=== PATIENT | female | born 1965 | race American Indian/Alaskan Native ===

== ENCOUNTER 2021-09-03 20:37 | Emergency (ER) | payer OTHER ==
[2021-09-03] MEDS ORDERED: IBUPROFEN 600 MG TAB PO ONE (21:10)
[2021-09-03] MEDS ORDERED: methylPREDNISolone Sod Succinate 125 MG/2 ML INJ IM ONE (21:10)
[2021-09-03] MEDS ORDERED: IPRATROPIUM/ALBUTEROL SULFATE 3 ML AMPUL.NEB IH ONE (21:10)
--- NOTE | 2021-09-03 21:27 | XRay Report ---
XR chest routine 2V INDICATION / CLINICAL INFORMATION: cough. COMPARISON: None available. FINDINGS: SUPPORT DEVICES: None. HEART /PULMONARY VASCULATURE: No significant abnormality. LUNGS / PLEURA: No significant pulmonary or pleural abnormality. No pneumothorax. ADDITIONAL FINDINGS: No significant additional findings. IMPRESSION: 1. No acute findings. Signer Name: Donte Johnson MD Signed: 09/03/2021 9:22 PM Workstation Name: [id number]
--- NOTE | 2021-09-03 21:49 | Emergency Department Report ---
- General Chief Complaint: Upper Respiratory Infection Stated Complaint: CHEST PAIN & SORE THROAT Source: patient Mode of arrival: Ambulatory Limitations: No Limitations - History of Present Illness Initial Comments: Patient is a 56-year-old -[place] female with a history of HIV, hypertension and type 2 diabetes who presents to the ED with complaint of acute onset persistent nasal and sinus congestion, frontal sinus pressure and headache, mild sore throat, persistent dry cough with intermittent wheezing for the last 1 week. Patient states that she has been taking ybru-pko-hjddjna medications with no relief. Patient also complains of diffuse body aches and pains and subjective fever and chills and lack of appetite. Patient states that her children have had similar symptoms as well. Patient denies dizziness, syncope, chest pain or shortness of breath, nausea and vomiting or diarrhea, dysuria, urinary frequency and urgency, Mahad pain, neck pain or back pain. MD Complaint: fever, cough, rhinorrhea, nasal congestion, sinus pain -: Sudden, week(s) (1) Severity: severe Severity scale (0 -10): 7 Quality: sharp, aching Consistency: constant Improves With: nothing Worsens With: nothing Context: sick contacts Associated Symptoms: denies other symptoms, fever, chills, myalgias, headache, rhinorrhea, nasal congestion, sore throat, cough. denies: diaphoresis, stiff neck, chest pain, shortness of breath, abdominal pain, nausea, vomiting, diarrhea, dysuria, rash, confusion, right sweats, epistaxis, hoarseness, ear pain Treatments Prior to Arrival: "cold medicine" - Related Data Previous Rx's Medication Instructions Recorded Last Taken Type Albuterol Sulfate [Proair 1 - 2 puff IH Q6H PRN #1 inh 09/03/21 Unknown Rx Respiclick] Benzonatate [Tessalon Perles] 100 mg PO Q8HR #30 cap 09/03/21 Unknown Rx Cetirizine HCl [Zyrtec 10mg tab] 10 mg PO DAILY #30 tab 09/03/21 Unknown Rx Doxycycline Hyclate 100 mg PO Q12H #20 cap 09/03/21 Unknown Rx methylPREDNISolone [Medrol 4MG 4 mg PO DAILY #21 tab 09/03/21 Unknown Rx DOSEPAK (21 tabs)] Allergies Allergy/AdvReac Type Severity Reaction Status Date / Time lisinopril Allergy Swelling Verified 09/03/21 21:01 ED Review of Systems ROS: Stated complaint: CHEST PAIN & SORE THROAT Other details as noted in HPI Constitutional: malaise, weakness. denies: chills, fever Eyes: denies: eye pain, eye discharge, vision change ENT: throat pain, congestion. denies: ear pain Respiratory: cough, wheezing. denies: shortness of breath Cardiovascular: denies: chest pain, palpitations Endocrine: no symptoms reported Gastrointestinal: denies: abdominal pain, nausea, vomiting, diarrhea Genitourinary: denies: urgency, dysuria, discharge Musculoskeletal: arthralgia, myalgia. denies: back pain, joint swelling Skin: denies: rash, lesions Neurological: headache. denies: weakness, paresthesias Psychiatric: denies: anxiety, depression Hematological/Lymphatic: denies: easy bleeding, easy bruising ED Past Medical Hx - Past Medical History Previous Medical History?: Yes Hx Hypertension: Yes Hx Diabetes: Yes Hx HIV: Yes - Social History Smoking Status: Current Some Day Smoker - Medications Home Medications: Home Medications Medication Instructions Recorded Confirmed Last Taken Type Albuterol Sulfate [Proair 1 - 2 puff IH Q6H PRN #1 inh 09/03/21 Unknown Rx Respiclick] Benzonatate [Tessalon Perles] 100 mg PO Q8HR #30 cap 09/03/21 Unknown Rx Cetirizine HCl [Zyrtec 10mg tab] 10 mg PO DAILY #30 tab 09/03/21 Unknown Rx Doxycycline Hyclate 100 mg PO Q12H #20 cap 09/03/21 Unknown Rx methylPREDNISolone [Medrol 4MG 4 mg PO DAILY #21 tab 09/03/21 Unknown Rx DOSEPAK (21 tabs)] ED Physical Exam - General Limitations: No Limitations General appearance: alert, in no apparent distress - Head Head exam: Present: atraumatic, normocephalic, normal inspection - Eye Eye exam: Present: normal appearance, PERRL, EOMI Pupils: Present: normal accommodation - ENT ENT exam: Present: mucous membranes moist, TM's normal bilaterally, normal external ear exam, other (Grossly congested nasal passages; palpable frontal and maxillary sinus tenderness; mild erythematous oropharynx) - Neck Neck exam: Present: normal inspection, full ROM, lymphadenopathy (Palpable anterior cervical lymphadenopathy) - Respiratory Respiratory exam: Present: wheezes (Mildly diffuse coarse wheezes throughout). Absent: normal lung sounds bilaterally, respiratory distress, rales, rhonchi, chest wall tenderness, accessory muscle use, decreased breath sounds, prolonged expiratory - Cardiovascular Cardiovascular Exam: Present: regular rate, normal rhythm, normal heart sounds. Absent: systolic murmur, diastolic murmur, rubs, gallop - GI/Abdominal GI/Abdominal exam: Present: soft, normal bowel sounds. Absent: tenderness, guarding, rebound, hyperactive bowel sounds, hypoactive bowel sounds, organomegaly - Extremities Exam Extremities exam: Present: normal inspection, full ROM, normal capillary refill. Absent: tenderness - Back Exam Back exam: Present: normal inspection, full ROM. Absent: tenderness, CVA tenderness (R), CVA tenderness (L), muscle spasm, paraspinal tenderness, vertebral tenderness - Neurological Exam Neurological exam: Present: alert, oriented X3, CN II-XII intact, normal gait, reflexes normal - Psychiatric Psychiatric exam: Present: normal affect, normal mood - Skin Skin exam: Present: warm, dry, intact, normal color. Absent: rash ED Course Vital Signs 09/03/21 09/03/21 20:55 20:59 Temperature 100 F H Pulse Rate 107 H Respiratory 18 Rate Blood Pressure 170/96 O2 Sat by Pulse 89 Oximetry ED Medical Decision Making - Radiology Data Radiology results: report reviewed, image reviewed [address] [address] XRay Report Signed Patient: VIVIANA GLOVER MR#: [id number] : 1965 Acct:[id number] Age/Sex: 56 / F ADM Date: 09/03/21 Loc: ED Attending Dr: Ordering Physician: ZACHARIAH EATON Date of Service: 09/03/21 Procedure(s): XR chest routine 2V Accession Number(s): [id number] cc: ZACHARIAH EATON Fluoro Time In Minutes: XR chest routine 2V INDICATION / CLINICAL INFORMATION: cough. COMPARISON: None available. FINDINGS: SUPPORT DEVICES: None. HEART /PULMONARY VASCULATURE: No significant abnormality. LUNGS / PLEURA: No significant pulmonary or pleural abnormality. No pneumothorax. ADDITIONAL FINDINGS: No significant additional findings. IMPRESSION: 1. No acute findings. Signer Name: Shira Parnell MD Signed: 09/03/2021 9:22 PM Workstation Name: [id number] Transcribed By: JS Dictated By: SHIRA PARNELL MD Electronically Authenticated By: SHIRA PARNELL MD Signed Date/Time: 09/03/212121 DD/ 21 TD/TT: - Medical Decision Making This is a 56-year-old -[place] female with a history of HIV, hypertension and type 2 diabetes who presents to the ED with complaint of acute onset persistent nasal and sinus congestion, frontal sinus pressure and headache, mild sore throat, persistent dry cough with intermittent wheezing for the last 1 week. Patient states that she has been taking avaw-slq-tufylys medications with no relief. Patient also complains of diffuse body aches and pains and subjective fever and chills and lack of appetite. Patient states that her children have had similar symptoms as well. In the ED, patient is alert and oriented x3 and is not in any distress. Patient was treated in the ED with DuoNeb and also given Solu-Medrol 125 mg intramuscular injection. On reevaluation, patient's pain is well controlled medication and wheezing resolved with medication. Chest x-ray showed no acute cardiopulmonary abnormalities or pneumonitis. Patient was therefore discharged home on medications and advised to follow-up with her primary care physician in 7 to 10 days for reevaluation or return to the ED immediately if her symptoms get worse. - Differential Diagnosis URI; sinusitis; pharyngitis; bronchitis; pneumonia; rhinitis Critical care attestation.: If time is entered above; I have spent that time in minutes in the direct care of this critically ill patient, excluding procedure time. ED Disposition Clinical Impression: Acute upper respiratory infection, Fever and chills Acute bronchitis Qualifiers: Bronchitis organism: other organism Qualified Code(s): J20.8 - Acute bronchitis due to other specified organisms Acute frontal sinusitis, unspecified Qualifiers: Recurrence: non-recurrent Qualified Code(s): J01.10 - Acute frontal sinusitis, unspecified Disposition: 01 HOME / SELF CARE / HOMELESS Is pt being admited?: No Does the pt Need Aspirin: No Condition: Stable Instructions: Acute Bronchitis (ED), Sinusitis, Adult, Kbzp-[id number], Upper Respiratory Infection, Adult, Thbw-bl-Ktfc, Cough, Adult, Gqce-rk-[id number], Acute Bronchitis, Adult, Zlpp-sn-Jkzx, Fever, Adult, Sykk-te-Ktkw Additional Instructions: Chest x-ray showed no acute cardiopulmonary abnormality or pneumonitis. Your symptoms are likely due to acute upper respiratory infection versus sinusitis versus bronchitis. Therefore take medication as advised, drink plenty of fluids and follow-up with your primary care physician in 7 to 10 days for reevaluation. Return to the ED immediately if symptoms get worse Prescriptions: Doxycycline Hyclate 100 mg PO Q12H #20 cap methylPREDNISolone [Medrol 4MG DOSEPAK (21 tabs)] 4 mg PO DAILY #21 tab Albuterol Sulfate [Proair Respiclick] 1 - 2 puff IH Q6H PRN #1 inh PRN Reason: Wheezing Benzonatate [Tessalon Perles] 100 mg PO Q8HR #30 cap Cetirizine HCl [Zyrtec 10mg tab] 10 mg PO DAILY #30 tab Referrals: [facility] [Provider Group] - 7-10 days Time of Disposition: 21:51 Print Language: ESTONIAN
[2021-09-04 00:14] VITALS: BP 170/94
--- NOTE | 2021-09-05 10:40 | Electrocardiograph Report ---
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
== END 2021-09-04 00:14 | disposition home or self-care (01) ==
LOC: ED 20:37
DX: J06.9 Acute upper respiratory infection, unspecified (principal); J01.10 Acute frontal sinusitis, unspecified; J20.9 Acute bronchitis, unspecified; I10 Essential (primary) hypertension; E11.9 Type 2 diabetes mellitus without complications; F17.200 Nicotine dependence, unspecified, uncomplicated; Z88.8 Allergy status to other drugs, medicaments and biological substances; Z79.899 Other long term (current) drug therapy
CPT/HCPCS: 71046; 93005; 94640; 96372; 99283; J2930